=== PATIENT | female | born 1985 ===

== ENCOUNTER 2019-12-25 13:39 | Inpatient (IN) | payer SELFPAY ==
[2019-12-25] MEDS ORDERED: LACTATED RINGERS 1,000 ML ONE (13:59)
[2019-12-25] MEDS ORDERED: OXYTOCIN 20 UNIT/1000ML DRIP 40,000 MILLIUNITS/2,000 ML BAG IV ONE (14:16)
[2019-12-25] MEDS ORDERED: AMPICILLIN/NS 2 GM/100 ML 2 GM/100 ML BAG IV ONE (14:18)
[2019-12-25] MEDS ORDERED: TERBUTALINE 1 MG/1 ML INJ SUB-Q PRN (14:30)
[2019-12-25] MEDS ORDERED: fentaNYL 100 MCG/2 ML INJ IV PRN (14:30)
[2019-12-25] MEDS ORDERED: BUTORPHANOL 2 MG/1 ML INJ IV PRN (14:30)
[2019-12-25] MEDS ORDERED: TERBUTALINE 1 MG/1 ML INJ IVP PRN (14:30)
[2019-12-25] MEDS ORDERED: LIDOCAINE (2%) 20 MG/1 ML VIAL 20 ML MDV INFILTRATI SCH (14:30)
[2019-12-25] MEDS ORDERED: AMPICILLIN/NS 2 GM/100 ML 2 GM/100 ML BAG IV SCH (14:30)
[2019-12-25] MEDS ORDERED: ePHEDrine SULFATE 50 MG/1 ML INJ IV PRN (14:30)
--- NOTE | 2019-12-25 14:33 | History and Physical Report ---
History of Present Illness Date of examination: 12/25/19 Date of admission: 12/25/2019 Chief complaint: Active labor at term History of present illness: 34 yo, at 37.3 wks, initiated care with [facility] at 18.2 wks gestation. Her has been complicated by late entry to [facility], obesity and GDM. She presents to [facility] with regular painful uterine ctxs and advanced cervical dilation. Reports + FM. Denies any LOF. Reports small amt of bloody show. Labs: A+, antibody negative; rubella immune; RPR negative; HBsAg negative; HIV negative; MSAFP negative; 1 hr gtt - 197; GBS unknown. Past History Past Medical History: diabetes (Gestational) Past Surgical History: no surgical history Family/Genetic History: diabetes (mother; grandparents), hypertension (Grandparents), Down's syndrome (Son) Social history: , lives with family, full code. denies: smoking, alcohol abuse, prescription drug abuse, IV drug use - Obstetrical History Expected Date of Delivery: 01/12/20 Actual Gestation: 37 Week(s) 3 Day(s) : 6 Para: 5 Hx # Term Pregnancies: 5 Number of Pregnancies: 0 Spontaneous Abortions: 0 Induced : 0 Number of Living Children: 5 #1 Infant Gender: Female year: 2,001 Method of Delivery: Vaginal #2 Infant Gender: Male year: 2,002 Method of Delivery: Vaginal #3 Gender: Female year: 2,008 Method of Delivery: Vaginal #4 Infant Gender: Male year: 2,010 Method of Delivery: Vaginal #5 Gender: Female year: 2,017 Method of Delivery: Vaginal Complications: other (GDM) Medications and Allergies Allergies Allergy/AdvReac Type Severity Reaction Status Date / Time No Known Allergies Allergy Verified 12/25/19 13:51 Active Meds: Active Medications Butorphanol Tartrate (Stadol) 2 mg IV Q2H PRN PRN Reason: Pain , Severe (7-10) Ephedrine Sulfate (Ephedrine Sulfate) 10 mg IV Q2M PRN PRN Reason: Hypotension Fentanyl (Sublimaze) 100 mcg IV Q2H PRN PRN Reason: Labor Pain Oxytocin/Sodium Chloride (Pitocin/Ns 20 Unit/1000ml Drip) 20 units in 1,000 mls @ 125 mls/hr IV DIRECT DIANE Lactated Ringer's (Lactated Ringers) 1,000 mls @ 125 mls/hr IV DIRECT DIANE Ampicillin Sodium (Ampicillin/Ns 2 Gm/100 Ml) 2 gm in 100 mls @ 100 mls/hr IV ONCE ONE; Protocol Stop: 12/25/19 15:06 Ampicillin Sodium (Ampicillin/Ns 1 Gm/50 Ml) 1 gm in 50 mls @ 100 mls/hr IV Q4HR DIANE; Protocol Lidocaine (Xylocaine 2%) 20 ml INFILTRATI ONCE ONE Stop: 12/25/19 14:08 Mineral Oil (Mineral Oil) 30 ml PO QHS PRN PRN Reason: Constipation Terbutaline Sulfate (Brethine) 0.25 mg SUB-Q ONCE PRN PRN Reason: Hyperstimulation/Hypertonicity Terbutaline Sulfate (Brethine) 0.25 mg IVP ONCE PRN PRN Reason: Hyperstimulation/Hypertonicity Review of Systems All systems: negative Genitourinary: vaginal discharge (bloody show), contractions - Vital Signs Vital signs: Vital Signs Pulse Pulse Ox 78 96 12/25/19 13:55 12/25/19 13:55 Temp Pulse Resp BP Pulse Ox 78 96 12/25/19 13:55 12/25/19 13:55 - Physical Exam Breasts: Positive: normal Cardiovascular: Regular rate Lungs: Positive: Normal air movement Abdomen: Positive: other (gravid) Genitourinary (Female): Positive: normal external genitalia, normal perenium Uterus: Positive: enlarged (S=D) - Obstetrical FHR: category 1 Uterine Contraction Monitor Mode: External Cervical Dilatation: 8 Cervical Effacement Percentage: 80 station: -1 Uterine Contraction Frequency (min): 2-4 Uterine Contraction Pattern: Irregular Uterine Tone Measurement Phase: Resting Uterine Contraction Intensity: Strong/Firm Results All other labs normal. Assessment and Plan - Patient Problems (1) 37 weeks gestation of Current Visit: Yes Status: Acute (2) Active labor at term Current Visit: Yes Status: Acute Plan to address problem: Admit to L & D Expectant management of labor Pain meds as desired Anticipate (3) Gestational diabetes Current Visit: Yes Status: Acute Plan to address problem: Point of care blood glucose checks 2 6 hrs (4) Obesity affecting Current Visit: Yes Status: Acute
[2019-12-25 14:57] LABS: Hematocrit 40.8 % (30.3-42.9); Hemoglobin 13.6 gm/dl (10.1-14.3); Mean Corpuscular HGB Conc 33 % (30-34); Mean Corpuscular Volume 86 fl (79-97); Platelet Count 125 K/mm3 (140-440); Red Blood Count 4.75 M/mm3 (3.65-5.03); Red Cell Distribution Width 14.7 % (13.2-15.2)
[2019-12-25] MEDS ORDERED: LACTATED RINGERS 1,000 ML IV SCH (15:00)
[2019-12-25] MEDS ORDERED: OXYTOCIN 20 UNIT/1000ML DRIP 20 UNITS/1,000 ML BAG IV SCH (15:00)
[2019-12-25] MEDS ORDERED: METHYLERGONOVINE MALEATE 0.2 MG/ML VIAL IM ONE (16:10)
[2019-12-25] MEDS ORDERED: ONDANSETRON 4 MG/2 ML INJ IV PRN (16:44)
[2019-12-25] MEDS ORDERED: WITCH HAZEL/ GLYCERIN PAD TP PRN (16:44)
[2019-12-25] MEDS ORDERED: oxyCODONE /ACETAMINOPHEN 5-325MG TAB PO PRN (16:44)
[2019-12-25] MEDS ORDERED: diphenhydrAMINE 25 MG CAP PO PRN (16:44)
[2019-12-25] MEDS ORDERED: LANOLIN/ZINC/DIMETHICONE (LANSINOH) 7 GM TP PRN (16:44)
[2019-12-25] MEDS ORDERED: MAGNESIUM HYDROXIDE (MOM) ORAL LIQD UDC PO PRN (16:44)
[2019-12-25] MEDS ORDERED: PROMETHAZINE 25 MG TAB PO PRN (16:44)
--- NOTE | 2019-12-25 16:59 | Procedure Note ---
OB Delivery Note - Delivery Date of Delivery: 12/25/19 (4621) Surgeon: RODRIGUEZ ATKINS (CNM) Estimated blood loss: 300cc - Vaginal Delivery presentation: vertex Delivery position: OA Intrapartum events: precipitous labor- <3hr Delivery induction: none Delivery monitor: external FHT, external uterine Route of delivery: Delivery placenta: spontaneous (1604, murdock) Episiotomy: none Delivery laceration: 2nd degree (perineal) Delivery repair: vicryl (3.0 - SH) Anesthesia: none Delivery comments: of viable, crying male infant. Cord double cut and clamped by myself after cessation of pulsation. Baby handed over to [facility] team. Placenta spontaneously delivered, disposed per hospital policy. Uterus firm @ U -1. Methergine 0.2mg IM given prophylatically secondary to grand-multip. Hemostasis maintained. Second degree perineal laceration repaired. Mother and baby safe, stable and bonding well. - Infant A at 1 minute: 8 at 5 minutes: 9 Gender: Male (Weight: 3129 gms (6lbs 14.3ozs), 18.5 inches)
[2019-12-25] MEDS ORDERED: AMPICILLIN/NS 1 GM/50 ML 1 GM/50 ML BAG IV SCH (18:30)
[2019-12-25] MEDS: IBUPROFEN 600 MG TAB PO SCH (20:50)
[2019-12-25] MEDS ORDERED: MINERAL OIL 30 ML ORAL LIQD PO PRN (22:00)
[2019-12-26 06:11] LABS: Hematocrit 34.7 % (30.3-42.9); Hemoglobin 11.9 gm/dl (10.1-14.3)
[2019-12-26] MEDS: FERROUS SULFATE 325 MG TAB PO SCH (09:30)
[2019-12-26] MEDS: PRENATAL VIT27-FE FUMARATE-FOLIC ACID VIT TAB PO SCH (09:30)
[2019-12-26] MEDS: IBUPROFEN 600 MG TAB PO SCH ×2 (10:03→23:21)
--- NOTE | 2019-12-26 11:33 | Progress Note ---
Assessment and Plan A: PP Day #1 Stable P: Follow Routine Orders D/C Home today per patient request RTO in 6 Weeks Subjective - Subjective Date of service: 12/26/19 Patient reports: appetite normal, voiding normally, pain well controlled, flat us, bowel movement, ambulating normally [place]: doing well, bottle feeding (and ) Objective - Vital Signs Latest vital signs: Vital Signs Temp Pulse Resp BP Pulse Ox 12/26/19 08:57 98.4 F 56 L 20 115/73 98 12/26/19 05:28 98.3 F 58 L 18 129/79 98 12/25/19 21:57 98.3 F 66 18 113/79 98 12/25/19 17:27 74 121/73 12/25/19 17:20 68 121/59 12/25/19 17:13 31 L 139/110 12/25/19 16:58 73 134/77 12/25/19 16:43 70 133/65 12/25/19 16:28 67 130/82 12/25/19 13:55 78 96 Intake and Output 12/25/19 12/26/19 12/26/19 22:59 06:59 14:59 Intake Total 112 360 Output Total 1200 800 Balance -1088 -440 Intake: Oral 112 360 Output: Urine 1200 800 Void 1200 800 Other: Total, Intake Amount 112 360 Total, Output Amount 400 800 # Voids Void 1 1 # Bowel Movements 0 Estimated Blood Loss 300 - Exam Breasts: Present: normal Cardiovascular: Present: Regular rate Lungs: Present: Clear to auscultation, Normal air movement Abdomen: Present: normal appearance, soft, normal bowel sounds Uterus: Present: normal, firm, fundal height below umbilicus Extremities: Present: normal - Labs Labs: Abnormal lab results 12/25/19 12/25/19 Range/Units 14:10 14:10 Plt Count 125 L (140-440) K/mm3 Glucose 111 H (65-100) mg/dL
--- NOTE | 2019-12-26 11:35 | Discharge Summary ---
Providers - Providers Date of Admission: 12/25/19 13:40 Date of discharge: 12/26/19 Attending physician: KYLEE JEAN MD Primary care physician: KYLEE JEAN MD Hospitalization Reason for admission: active labor Delivery: Episiotomy: none Laceration: 2nd degree Other procedures: none complications: none Discharge diagnosis: IUP at term delivered [place] baby: male Condition at discharge: Good Disposition: DC-01 TO HOME OR SELFCARE Plan - Provider Discharge Summary Activity: routine, no sex for 6 weeks, no heavy lifting 4 weeks, no strenuous exercise Diet: routine Instructions: routine Additional instructions: [] Smoking cessation referral if applicable(refer to patient education folder for contact #) [] Refer to [facility] Booklet Call your doctor immediately for: * Fever > 100.5 * Heavy vaginal bleeding ( >1 pad per hour) * Severe persistent headache * Shortness of breath * Reddened, hot, painful area to leg or breast * Drainage or odor from incision. * Keep incision clean and dry at all times and follow doctor's instructions regarding bathing/showering - Follow up plan Follow up: KYLEE JEAN MD [Primary Care Provider] - 6 Weeks
[2019-12-27] MEDS: IBUPROFEN 600 MG TAB PO SCH ×2 (05:47→09:23)
[2019-12-27] MEDS: PRENATAL VIT27-FE FUMARATE-FOLIC ACID VIT TAB PO SCH (09:24)
[2019-12-27] MEDS: FERROUS SULFATE 325 MG TAB PO SCH (09:24)
[2019-12-27 17:41] VITALS: BP 128/76
== END 2019-12-27 17:30 | disposition home or self-care (01) | DRG 807 ==
LOC: TRG 13:39 → LD 13:39 → TRG 13:40 → LD 14:16 → OB 18:01
PROVIDERS: ADMIT Obstetrics & Gynecology; ATTEND Obstetrics & Gynecology
PROC: 10E0XZZ Delivery of Products of Conception, External Approach (ICD-10-PCS; principal; 2019-12-25)
PROC: 0KQM0ZZ Repair Perineum Muscle, Open Approach (ICD-10-PCS; 2019-12-25)
DX: O24.429 Gestational diabetes mellitus in childbirth, unspecified control (principal); Z37.0 Single live birth; Z3A.37 37 weeks gestation of pregnancy; O99.214 Obesity complicating childbirth; E66.9 Obesity, unspecified; O62.3 Precipitate labor; O70.1 Second degree perineal laceration during delivery; Z82.49 Family history of ischemic heart disease and other diseases of the circulatory system
CPT/HCPCS: 36415; 59025; 82947; 85014; 85018; 85027; 86850; 86900; 86901; G0378; J0290; J2210; J2590; J7120